=== PATIENT | female | born 1945 | race Caucasian/White ===

== ENCOUNTER 2024-08-31 10:28 | Outpatient (CLI) | payer MEDICARE, BC | END 2024-08-31 10:29 | disposition home or self-care (01) | LOC: SCSMRI 10:28 | PROVIDERS: ATTEND Nurse Practitioner Family | DX: M51.34 Other intervertebral disc degeneration, thoracic region (principal); M70.61 Trochanteric bursitis, right hip; K57.90 Diverticulosis of intestine, part unspecified, without perforation or abscess without bleeding; M76.01 Gluteal tendinitis, right hip; M47.24 Other spondylosis with radiculopathy, thoracic region; M47.815 Spondylosis without myelopathy or radiculopathy, thoracolumbar region; M47.26 Other spondylosis with radiculopathy, lumbar region; M47.817 Spondylosis without myelopathy or radiculopathy, lumbosacral region | CPT/HCPCS: 72146; 72148 ==

== ENCOUNTER → 2024-09-15 | Outpatient (CLI) | payer MEDICARE, BC | LOC: SCSRAD 10:34 | PROVIDERS: ATTEND Nurse Practitioner Family | DX: M25.562 Pain in left knee (principal); M17.12 Unilateral primary osteoarthritis, left knee ==

== ENCOUNTER 2024-11-17 08:56 | Outpatient (CLI) | payer MEDICARE, BC | END 2024-11-17 08:57 | disposition home or self-care (01) | LOC: ULT 08:56 | PROVIDERS: ATTEND Internal Medicine | DX: K83.8 Other specified diseases of biliary tract (principal); R10.11 Right upper quadrant pain | CPT/HCPCS: 74181; 76705 ==